=== PATIENT | male | born 1990 | race Caucasian/White ===

== ENCOUNTER 2018-05-02 14:30 | Emergency (ER) | payer OTHER ==
[2018-05-02] MEDS ORDERED: SODIUM CHLORIDE 1,000 ML IV STA (14:53)
[2018-05-02] MEDS ORDERED: DEXAMETHASONE LIQUID 0.5 MG/5 ML 240 ML BULK BOTTLE PO ONE (14:53)
[2018-05-02] MEDS ORDERED: ACETAMINOPHEN 1000 MG/100 ML VIAL (NON FORMULARY) IVPB ONE (14:54)
[2018-05-02 14:58] VITALS: BP 131/84; PULSE 78; TEMP 98.5; BMI 23.6
--- NOTE | 2018-05-02 15:01 | PDOC ---
Rapid Medical Evaluation Time Seen by Provider: 05/02/18 14:51 Medical Evaluation: Allergies Allergy/AdvReac Type Severity Reaction Status Date / Time No Known Allergies Allergy Verified 05/02/18 14:52 05/02/18 14:59 The patient presents with a chief complaint of: rt throat pain since sunday, took zpak,no relief I have performed a brief in-person evaluation of this patient: 3-4 + rt erythematous tonsil, hot potatoe voice Pertinent physical exam findings: ambulatory, in no respiratory distress I have ordered the following: labs, iv, fluids, decadron, iv tylenol annd ct The patient will proceed to the ED for further evaluation. Discharge Disposition - Diagnosis Tonsillar enlargement - Referrals - Patient Instructions - Post Discharge Activity
[2018-05-02 15:16] LABS: BASO % 0.5 % (0-2.0); EOS % 0.2 % (0-4.5); HEMOGLOBIN 14.6 GM/dL (11.7-16.9); LYMPH % 21.3 % (8-40); MCH 29.5 pg (25.7-33.7); MCHC 35.6 g/dl (32.0-35.9); MEAN CELL VOLUME 82.8 fl (80-96); MONO % 8.6 % (3.8-10.2); NEUT % 69.4 % (42.8-82.8); PLATELET COUNT 221 K/MM3 (134-434); RBC 4.96 M/mm3 (4.00-5.60); RDW 13.1 % (11.9-15.9); WHITE BLOOD COUNT 7.6 K/mm3 (4.0-10.0)
--- NOTE | 2018-05-02 15:33 | PDOC ---
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 Endorses pain with swallowing over past two days. Was evaluated by PCP, Dr. Richy Rucker, on Sunday and prescribed Azithromycin 250mg. The symptoms continued to worsen to he returned for a second evaluation by PCP today. Concern was raised for possible retropharyngeal abscess and pt was encouraged to self-present to ED. Pt denies fevers, chills, diaphoresis, headaches, or nuchal rigidity. Denies difficult chewing or opening mouth. Denies h/o of similar. No recent dental procedures. Pt is predominantly Azerbaijani speaking. Declined telephone blueprinting machine operator for initial interview. Medical Hx: - Pt denies past medical history. Denies prescription medications. Surgical Hx: - Pt denies past surgical history. Past History - Past Medical History Allergies/Adverse Reactions: Allergies Allergy/AdvReac Type Severity Reaction Status Date / Time No Known Allergies Allergy Verified 05/02/18 14:52 Home Medications: Ambulatory Orders Amox-Tr/K Cl [Augmentin - 875Mg Tablet] 1 tab PO BID #14 tablet 05/02/18 - Suicide/Smoking/Psychosocial Hx Smoking History: Never smoked Review of Systems - Review of Systems Able to Perform ROS?: Yes Comments:: In addition to that documented in the HPI above, the additional ROS was obtained : Constitutional: Denies fevers or chills ENMT: Per HPI CV: Denies chest pain Resp: Denies SOB GI: Denies vomiting or diarrhea Skin: Denies rash or bruising *Physical Exam - Vital Signs Last Vital Signs Temp Pulse Resp BP Pulse Ox 98.5 F 78 18 131/84 98 05/02/18 14:52 05/02/18 14:52 05/02/18 14:52 05/02/18 14:52 05/02/18 14:52 - Physical Exam Comments: Constitutional: Well-developed, well-nourished adult male in no acute distress but obvious mild discomfort. Found sitting upright on edge of hospital bed. Alert and oriented x4. Answered all questions appropriately and completely. Speech was non-labored, non-pressured. Head: Normocephalic. No obvious external signs of trauma. Eyes: Sclerae white. Ears: External auditory canals and tympanic membranes clear bilaterally. Hearing grossly intact. Nose: No nasal discharge. Throat: Right sided peritonsillar enlargement with overlying erythema. No purulent discharge. Teeth and gingiva in good general condition. Neck: Supple, trachea is midline. Diffuse tenderness to palpation on right side. No nuchal rigidity. Cardiovascular / Chest: Regular rate and regular rhythm. No murmur, rubs, clicks, or gallops. Peripheral pulses: radial pulses full. Respiratory: Breathing unlabored. Equal chest rise and fall. Clear to auscultation bilaterally. No stridor, no wheezing, no rhonchi. Neuro: Alert and oriented. Moving all four extremities spontaneously. Skin: Warm, dry, and intact. Psych: Affect: appropriate. Mood: normal. Moderate Sedation - Procedure Monitoring Vital Signs: Procedure Monitoring Vital Signs Temperature 98.5 F 05/02/18 14:52 Pulse Rate 78 05/02/18 14:52 Respiratory Rate 18 05/02/18 14:52 Blood Pressure 131/84 05/02/18 14:52 O2 Sat by Pulse Oximetry (%) 98 05/02/18 14:52 Procedures - Additional Procedures Progress: PROCEDURE NOTE: Incision/Drainage of Peritonsillar Abscess PROCEDURE HANDKERCHIEF CUTTER: Yordan Estrada M.D. resident ATTENDING PHYSICIAN: Dr. Mcmanus In Attendance (Y/N) Y Indication: Right peritonsillar abscess noted on POCUS. CONSENT: Written consent was obtained from pt prior to the procedure. Indications, risks , and benefits were explained at length. Interpretation provided by [employer] Telephone blueprinting machine operator # [id number]. PROCEDURE SUMMARY: Immediately prior to procedure a time out was called to verify the correct patient, procedure, equipment, and therapeutic support staff. Area was anesthetized with Cetacaine spray and local injection of 2cc of 2% lidocaine without epinephrine. A straight incision puncture of approx. 1.5cm depth was made with 18g straight needle covered by plastic cover. Attempts: 1. Drainage: purulent drainage. Drainage amount: 2.5cc. Patient tolerated the procedure well with no immediate complications. EBL <5cc. ED Treatment Course - LABORATORY CBC & Chemistry Diagram: 05/02/18 15:05 05/02/18 15:05 - ADDITIONAL ORDERS Additional order review: 05/02/18 15:05 RBC 4.96 MCV 82.8 MCHC 35.6 RDW 13.1 MPV 8.0 Neutrophils % 69.4 Lymphocytes % 21.3 Monocytes % 8.6 Eosinophils % 0.2 Basophils % 0.5 Medical Decision Making - Medical Decision Making *Reviewed vital signs, nursing notes, and prior visit documentation (if available). 28 y/o male with sore throat and right sided neck pain. Afebrile. Vitals unremarkable for hypotension or tachycardia. Physical exam concerning for right peritonsillar abscess, which was noted on bedside POCUS. No signs of systemic infection. Low suspicion for Ludwigs angina, retropharyngeal, or Lemierres. CBC unremarkable for leukocytosis. Abscess drained with aspiration. Procedure well tolerated. Will prescribe PO Augmentin for 7 days. First dose given in ED. Pt referred to ENT for clinic follow up. Discussed imaging and laboratory results with pt. Answered all questions. Provided return precautions. Pt expressed verbal understanding and agreement with plan to discharge home with outpatient follow up. *DC/Admit/Observation/Transfer Diagnosis at time of Disposition: Peritonsillar abscess - Discharge Dispostion Disposition: HOME Condition at time of disposition: Good Decision to Admit order: No - Prescriptions Prescriptions: Amox-Tr/K Cl [Augmentin - 875Mg Tablet] 1 tab PO BID #14 tablet - Referrals Schedule a call back: Throat Culture Referrals: Werner Navarro MD [Staff Physician] - - Patient Instructions Printed Discharge Instructions: DI for Peritonsillar Abscess -- Adult Additional Instructions: Hoy te vieron por un dolor de garganta y dolor de jean carlos en el lado derecho. Usted tuvo un absceso peritonsillar derecho que se identific en la ecografa. Se adormeci el marshall y se dren el pus. Seguir teniendo algo de dolor en el marshall amelie los prximos irby. Puede norma el contador de Tylenol o Advil segn sea necesario para el dolor. Norma hetal se indica en el prospecto. No exceda la dosis recomendada. He enviado lennie receta para un antibitico llamado Augmentin. Norma hetal se indica en el prospecto. No exceda la dosis recomendada. Deber realizar un seguimiento con un mdico ENT. Te he referido al Dr. Navarro. Tendr que llamar para hacer lennie tiffanie. El nmero est incluido en husam paquete. Lennie copia de los resultados de hoy se adjunta a husam paquete. Llvelo a la tiffanie para que kapoor mdico pueda revisarlos. Vaya al departamento de emergencias ms cercano si kapoor afeccin empeora o si roe que necesita lennie evaluacin de emergencia adicional. You were seen today for a sore throat and right sided neck pain. You had a right peritonsillar abscess that was identified on ultrasound. The area was numbed and the pus was drained. You will continue to have some pain in the area for the next several days. You can take over the counter Tylenol or Advil as needed for pain. Take as directed on the package insert. Do not exceed the recommended dosage. I have sent a prescription for an antibiotic called Augmentin. Take as directed on the package insert. Do not exceed the recommended dosage. You will need to follow up with an ENT doctor. I have referred you to Dr. Navarro. You will need to call to make an appointment. The number is included in this packet. A copy of todays results are attached to this packet. Take it to the appointment so your doctor can review them. Go to the nearest emergency department if your condition worsens or you feel like you need additional emergency evaluation. Print Language: CYMRO - Post Discharge Activity Forms/Work/School Notes: Back to Work
[2018-05-02 15:55] LABS: ALBUMIN 3.8 g/dl (3.4-5.0); ALK PHOS 70 U/L (45-117); ANION GAP 5 MMOL/L (8-16); BILIRUBIN,TOTAL 0.9 mg/dL (0.2-1); BLOOD UREA NITROGEN 18 mg/dL (7-18); CALCIUM 8.7 mg/dL (8.5-10.1); CHLORIDE 104 mmol/L (98-107); CO2 29 mmol/L (21-32); CREATININE 0.9 mg/dL (0.55-1.3); GLUCOSE,RANDOM 91 mg/dL (74-106); POTASSIUM 4.1 mmol/L (3.5-5.1); SGOT/AST 6 U/L (15-37); SGPT/ALT 27 U/L (13-61); SODIUM 138 mmol/L (136-145); TOT PROT 7.8 g/dl (6.4-8.2)
[2018-05-02] MEDS ORDERED: KETOROLAC TROMETHAMINE 30 MG/1 ML VIAL IVPUSH ONE (15:57)
[2018-05-02] MEDS ORDERED: KETOROLAC TROMETHAMINE 30 MG/1 ML VIAL ONE (16:15)
[2018-05-02] MEDS ORDERED: DEXAMETHASONE SOD PHOSPHATE 10 MG/1 ML VIAL ONE (16:15)
[2018-05-02] MEDS ORDERED: DEXAMETHASONE SOD PHOSPHATE 10 MG/1 ML VIAL IVPUSH ONE (16:16)
[2018-05-02] MEDS ORDERED: ACETAMINOPHEN 1000 MG/100 ML VIAL (NON FORMULARY) IVPB PRN (16:16)
[2018-05-02] MEDS ORDERED: HURRICAINE SP EXT TUBE 1 EA EACH TP ONE (16:31)
[2018-05-02] MEDS ORDERED: LIDOCAINE HCL 2% (50ML VIAL) SQ ONE (16:32)
[2018-05-02] MEDS ORDERED: LIDOCAINE HCL 2% (20ML MULTI-DOSE VIAL) NR ONE (16:56)
[2018-05-02] MEDS ORDERED: AMOX TR/POT CLAV 875MG/125MG TABLETS (FP) PO ONE (17:54)
--- NOTE | 2018-05-02 18:15 | PDOC ---
Attending Attestation - Resident Resident Name: Yordan Estrada - ED Attending Attestation I have performed the following: I have examined & evaluated the patient, The case was reviewed & discussed with the resident, I agree w/resident's findings & plan - Physicial Exam PE: 05/02/18 18:13 NAD, well appearing, NCAT, PERRL, EOMI, clear conjunctiva, anicteric, moist mucus membranes, clear oropharynx. +bilateral tonsillary enlargement, right > left with marked erythema - no exudates. Airway patent, normal phonation. Uvula midline. No sinus tenderness, TM clear, no pinna tenderness to manipulation. no trismus neck supple. lungs clear, RRR, abdomen soft nontender. AN x4, no focal neuro deficits. No peripheral edema. normal color for ethnicity, WWP. - Medical Decision Making 05/02/18 18:14 History of physical as documented. Vital signs are normal, no fevers. Nontoxic. Airway patent Clinically suspect a peritonsillar abscess, bedside ultrasound with endocavitary probe revealed fluid collection in the right tonsil. Bedside aspiration with 18-gauge needle, performed by resident at the bedside I supervised the procedure entirely. 2.5 mL of purulence aspirated with immediate improvement, negative aspiration for blood and no vessel penetration. Wound culture obtained. strep test neg. f/u throat and wound cultures Results are within normal limits, patient is tolerating oral secretions. Will Rx Augmentin 10 day course. Outpatient ENT follow-up provided. Pt to be discharged in stable condition. Patient and family made aware of impression and plan, return precautions discussed (including but not limited to worsening pain or symptoms), fevers, or signs of infection, chest pain, respiratory distress, inability to tolerate oral intake, dehydration, syncope, or neurologic changes). Follow up with PMD and/or ENT specialist as recommended , follow up information provided, take medications as instructed for duration of time. continue with supportive care, avoid triggers and precipitants. All questions answered to patient's satisfaction and expressed understanding and comfort with this. Patient does not suffer from an acute life-threatening medical condition at this time he is safe for outpatient follow-up. 05/02/18 18:19 <Meenakshi Mcmanus - Last Filed: 05/02/18 18:19> - HPI HPI: 28 Y M presenting with sore throat and right side neck pain for 4 days. Patient reports associated difficulty and pain with swallowing, but denies difficulty chewing or opening mouth. Patient was evaluated by PCP Sunday and prescribed Azithromycin (250mg), and once again this morning since his symptoms have not resolved. Patient was referred to the ED to rule out possible abscess. He denies any history of similar symptoms. Patient is indian-speaking and able to speak Danish and verbalize understanding, but declined using piano sounding board matcher phone. Denies fever, chills, diaphoresis, chest pain, SOB, palpitation, dizziness, weakness, N, V, D, nuchal rigidity, abdominal pain, bladder and bowel problems, leg swelling, No sick contacts or travel. No new changes in medications. Allergies: NKA Past Medical History: No PMH Social history: Lives with family. No smoking. No alcohol. No illicit drugs. Surgical history: None reported PMD: Dr. Richy Rucker 05/02/18 18:53 - Medical Decision Making Documentation prepared by SADE Robles, acting as claim review medical director for Meenakshi Mcmanus MD. 05/02/18 18:53 <Polly Hernandez - Last Filed: 05/02/18 18:53>
[2018-05-02] MEDS ORDERED: AMOX TR/POT CLAV 875MG/125MG TABLETS (FP) ONE (18:32)
== END 2018-05-02 18:43 | disposition home or self-care (01) ==
LOC: JER 14:30
PROC: 0C9P0ZZ Drainage of Tonsils, Open Approach (ICD-10-PCS; principal; 2018-05-02)
PROC: BH4CZZZ Ultrasonography of Head and Neck (ICD-10-PCS; 2018-05-02)
DX: J36 Peritonsillar abscess (principal)
CPT/HCPCS: 36415; 80053; 85025; 87070; 87077; 87186; 87205; 87880; 99282-25; J1100; J7030